=== PATIENT | female | born 1965 | race Caucasian/White ===

== ENCOUNTER → 2017-02-13 | Outpatient (CLI) | payer BC ==
[~2017-02-13] MED LIST: AZO MENOPAUSE1 X PO; FLUOCINONIDE0.05% TP; MULTIPLE VITAMI1 CAP PO
== END ==
LOC: MC.RAD 13:00
DX: Z12.31 Encounter for screening mammogram for malignant neoplasm of breast (principal); R92.1 Mammographic calcification found on diagnostic imaging of breast

== ENCOUNTER → 2020-04-13 | Outpatient (CLI) | payer BC | LOC: COL.LAB 12:19 | DX: R59.0 Localized enlarged lymph nodes (principal); Z20.828 Contact with and (suspected) exposure to other viral communicable diseases ==

== ENCOUNTER → 2021-08-07 | Outpatient (CLI) | payer BC | LOC: MC.RAD 10:43 | DX: Z12.31 Encounter for screening mammogram for malignant neoplasm of breast (principal) ==

== ENCOUNTER → 2024-01-14 | Outpatient (CLI) | payer BC | LOC: MC.RAD 13:59 | DX: R92.8 Other abnormal and inconclusive findings on diagnostic imaging of breast (principal) ==